=== PATIENT | male | born 1975 | race Caucasian/White ===

== ENCOUNTER 2017-06-27 13:28 | Emergency (ER) | END 2017-06-27 15:16 | disposition home or self-care (01) ==

== ENCOUNTER 2017-09-17 17:53 | Emergency (ER) | END 2017-09-17 18:20 | disposition home or self-care (01) ==

== ENCOUNTER 2018-04-01 18:09 | Emergency (ER) | END 2018-04-01 22:23 | disposition home or self-care (01) ==